=== PATIENT | male | born 1990 | race Caucasian/White ===

== ENCOUNTER 2021-12-29 14:10 | Emergency (ER) | payer MEDICAID ==
[~2021-12-29] VITALS: Ht 160 cm; Wt 74.4 kg
[2021-12-29 14:35] VITALS: BP 130/77
[2021-12-29] MEDS ORDERED: proparacaine 0.5% ophthalmic drops 15ml EACHEYE ONE (14:45)
[2021-12-29] MEDS ORDERED: ERYT1OIN6 RIGHTEYE (15:21)
[2021-12-29] MEDS ORDERED: erythromycin ophthalmic ointment 1gm tube RIGHTEYE ONE (15:25)
== END 2021-12-29 15:58 | disposition home or self-care (01) ==
LOC: ER 14:11
DX: S05.01XA Injury of conjunctiva and corneal abrasion without foreign body, right eye, initial encounter (principal); J45.909 Unspecified asthma, uncomplicated; X58.XXXA Exposure to other specified factors, initial encounter; Y93.9 Activity, unspecified; Y92.89 Other specified places as the place of occurrence of the external cause; Y99.8 Other external cause status
CPT/HCPCS: 99283